=== PATIENT | female | born 1995 | race Caucasian/White ===

== ENCOUNTER 2018-06-26 10:54 | Emergency (ER) | payer OTHER ==
[~2018-06-26] VITALS: Ht 167.6 cm; Wt 74.8 kg
[2018-06-26 11:06] VITALS: BP_SYST 118
--- NOTE | 2018-06-26 11:06 | NUR ---
Patient to ER bed 5 to gown for evaluation. Side rails up.
--- NOTE | 2018-06-26 11:15 | NUR ---
Pt presents to ER c/o rectal pain 5/10 on pain scale. Pt reports that she recently saw school nurse who examined her and reported she has rectal fissure. Pt denies any bloody stools, denies chest pain or sob, denies nausea or vomiting. pt in no acute distress, AOX4, respirations even and unlabored, ambulatory. Pt unable to sit down due to pain; accompanied by family.
--- NOTE | 2018-06-26 11:42 | NUR ---
Dr. Harvey at bedside for examination accompanied by Tanvi BRINK.
--- NOTE | 2018-06-26 11:44 | NUR ---
PATIENT SEEN BY DR EDWARDS, RECTAL EXAM PERFORMED. CHAPPARONE AT BEDSIDE. PATIENT REQUESTING PAIN MEDICATION
[2018-06-26] MEDS ORDERED: KETOROLAC TROMETHAMINE 60 MG/2 ML VIAL IM ONE (11:45)
--- NOTE | 2018-06-26 11:57 | NUR ---
60 MG TORADOM IM TO R GLUTE. PATIENT TOLERATED WELL.
--- NOTE | 2018-06-26 12:13 | NUR ---
Patient given written and verbal discharge instructions and verbalizes understanding. ER MD discussed with patient the results and treatment provided. Patient in stable condition. ID arm band removed. Rx of given. Patient educated on pain management and to follow up with PMD. Pain Scale 4/10. Opportunity for questions provided and answered. Medication side effect fact sheet provided. PRESCRIPTIONS FOR NAPROSYN 500MG BID AND ANNUSOL QID GIVEN TO PATIENT.
[2018-06-26 12:14] VITALS: BP_SYST 118
== END 2018-06-26 12:14 | disposition home or self-care (01) ==
LOC: SED 10:54
DX: K60.2 Anal fissure, unspecified (principal)
CPT/HCPCS: 96372; 99283; J1885